=== PATIENT | male | born 1965 | race Caucasian/White ===

== ENCOUNTER → 2017-02-04 | Outpatient (CLI) | payer OTHER ==
--- NOTE | 2017-02-04 15:40 | NM ---
EXAMINATION TYPE: NM hepatobiliary w EF DATE OF EXAM: 02/04/2017 3:36 PM COMPARISON: NONE HISTORY: Dyspepsia TECHNIQUE: After the intravenous administration of 5.24 mCi Tc 99m Mebrofenin hepatobiliary scintigra phy is performed. Immediate images post injection. FINDINGS: There is satisfactory initial accumulation of tracer by the liver. The gallbladder is visualized wit hin 17 minutes. The small bowel activity is noted within 17 minutes. At one hour 8 ounces of oral e nsure plus is given to mimic CCK and gallbladder ejection fraction is calculated at 83 %, in the norm al range. Therefore there is no scintigraphic evidence of cystic or common bile duct obstruction to suggest acute cholecystitis or gallbladder dyskinesia. IMPRESSION: 1. No evidence of cholecystitis 2. Ejection fraction 83%.
== END | disposition home or self-care (01) ==
LOC: RADNMMAIN 12:49
PROVIDERS: ATTEND Family Medicine
DX: K82.4 Cholesterolosis of gallbladder (principal)
CPT/HCPCS: 78226; A9537

== ENCOUNTER 2017-03-21 07:52 | Day surgery (SDC) | payer OTHER ==
[2017-03-16 10:00] VITALS: BMI 26.6
[~2017-03-21 07:52] MED LIST: DEXAMETHASONE SOD PHOSPHATE 10 MG/ML 1 ML VIAL IV ONE; HEPARIN SODIUM,PORCINE 5,000 UNIT/ML 1 ML VIAL SQ ONE; HYDROmorphone 1 MG/ML 1 ML SYRINGE IVP PRN; LACTATED RINGERS 1,000 ML IV SCH; LIDOCAINE 1% 20 ML VIAL (10MG/ML) FOR IV START INTRADERMA PRN; MIDAZOLAM 2 MG/2 ML VIAL IV PRN; ONDANSETRON 4 MG/2 ML VIAL IVP ONE; SCOPOLAMINE 1.5MG/72HR PATCH TRANSDERM ONE
--- NOTE | 2017-03-21 08:32 | P.GSHP ---
History of Present Illness H&P Date: 03/21/17 Chief Complaint: Right upper quadrant pain This a 51-year-old male referred from Dr. Audelia iglesias. Patient with rectal quadrant pain. His recent HIDA scan shows abnormal ejection fraction of 83%. He is also known to have cholelithiasis. Past Medical History Additional Past Medical History / Comment(s): past hx. ulcer History of Any Multi-Drug Resistant Organisms: None Reported Past Surgical History: Hernia Repair Additional Past Surgical History / Comment(s): EGD, hemorrhoidectomy Past Anesthesia/Blood Transfusion Reactions: No Reported Reaction Smoking Status: Never smoker - Past Family History Father Family Medical History: Diabetes Mellitus Mother Family Medical History: Diabetes Mellitus Medications and Allergies Home Medications Medication Instructions Recorded Confirmed Type Ergocalciferol (Vitamin D2) 50,000 unit PO Q7D 03/16/17 03/21/17 History [Vitamin D2] Allergies Allergy/AdvReac Type Severity Reaction Status Date / Time Penicillins Allergy Unknown Verified 03/21/17 08:06 Childhood Surgical - Exam Vital Signs Temp Pulse Resp BP Pulse Ox 97.3 F L 77 16 129/80 95 03/21/17 08:04 03/21/17 08:04 03/21/17 08:04 03/21/17 08:04 03/21/17 08:04 - General well developed, no distress - Eyes PERRL - ENT normal pinna - Neck no masses - Respiratory normal expansion - Cardiovascular Rhythm: regular - Abdomen Abdomen: soft, non tender Assessment and Plan Plan: Cholelithiasis Chronic cholecystitis We'll perform laparoscopic cholecystectomy.
[2017-03-21] MEDS ORDERED: BUPIVACAIN-EPI 0.5%-1:200,000 30 ML VIAL SQ ONE ×2 (08:57→09:21)
[2017-03-21] MEDS ORDERED: MIDAZOLAM 2 MG/2 ML VIAL ONE (09:00)
[2017-03-21] MEDS ORDERED: SUCCINYLCHOLINE CHLORIDE 100 MG/5 ML SYR IV ONE (09:00)
[2017-03-21] MEDS ORDERED: NEOSTIGMINE 1 MG/ML 10 ML VIAL ONE (09:00)
[2017-03-21] MEDS ORDERED: PROPOFOL 10 MG/ML 20 ML VIAL IV ONE (09:00)
[2017-03-21] MEDS ORDERED: ROCURONIUM BROMIDE 10 MG/ML 10 ML VIAL IV ONE (09:00)
[2017-03-21] MEDS ORDERED: LIDOCAINE 1% INJ 10MG/ML (20 ML MDV) ONE (09:00)
[2017-03-21] MEDS ORDERED: GLYCOPYRROLATE 0.2 MG/ML 2 ML VIAL ONE (09:00)
[2017-03-21] MEDS ORDERED: fentaNYL (PF) 50 MCG/ML 2 ML AMP ONE (09:00)
[2017-03-21] MEDS: ceFAZolin 2 GM in SODIUM CHLORIDE 0.9% 100 ML IVPB ONE ×2 (09:17→09:20)
--- NOTE | 2017-03-21 09:39 | P.OP ---
Date of Procedure: 03/21/17 Preoperative Diagnosis: Cholelithiasis Cholecystitis Postoperative Diagnosis: Cholelithiasis Cholecystitis Procedure(s) Performed: Laparoscopic cholecystectomy Implants: Anesthesia: RANDELL Surgeon: Bret Smith Estimated Blood Loss (ml): 5 Pathology: other (Gallbladder) Condition: stable Disposition: PACU Indications for Procedure: Operative Findings: Description of Procedure: The patient was placed on the operating table. The patient received a general endotracheal tube anesthesia. The patients abdomen was prepped and draped in the usual sterile fashion. Through an infraumbilical stab incision, the fascia of the anterior abdominal wall was grasped with a pair of Kochers and then the Veress needle was placed in the peritoneal cavity. Position of the Veress needle was confirmed with positive drop test. The abdomen was then insufflated. After adequate insufflation, the 10 mm trocar was placed in the peritoneal cavity. Following this the laparoscope was placed in the peritoneal cavity. The patient was placed in the head-up, right side up position and then a 5 mm trocar was placed in the right lateral and right subcostal position under direct visualization. A 8 mm trocar was placed in the epigastric position. The gallbladder was grasped in the fundus and infundibulum. Traction on the gallbladder was placed in the lateral and the cephalad positions. The triangle of Calot was visualized.. The cystic duct was bluntly dissected until the union of the cystic duct and common bile duct was seen. The cystic duct was then divided and sealed with the Harmonic scissors. A PDS Endoloop was then placed throughout the cystic duct stump. The cystic artery divided and sealed with the Harmonic scissors. The gallbladder was then removed from the liver bed using Harmonic scissors. The gallbladder was then extracted through the epigastric port site. Operative field was checked for any bleeding spots and Harmonic scissors was used to coagulate the liver bed. The abdomen was irrigated. The trocars were removed. The skin was closed using interrupted 3-0 Vicryl suture. Dermabond dressing were applied. The patient tolerated the procedure well.
[2017-03-21 09:57] VITALS: TEMP 98.2
[2017-03-21] MEDS ORDERED: KETOROLAC 30 MG/ML 1 ML VIAL IVP ONE (10:09)
[2017-03-21 10:16] VITALS: RESP 16
[2017-03-21] MEDS ORDERED: LACTATED RINGERS 1,000 ML IV ONE (10:36)
[2017-03-21 11:54] VITALS: BP 121/64; PULSE 72
== END 2017-03-21 12:14 | disposition home or self-care (01) ==
LOC: OR 07:52
PROVIDERS: ATTEND Surgery
DX: K80.10 Calculus of gallbladder with chronic cholecystitis without obstruction (principal); K21.9 Gastro-esophageal reflux disease without esophagitis; Z88.0 Allergy status to penicillin
CPT/HCPCS: 88304; 47562; J2250; J1644; J1100; J2710; J0690; J2405; J2001; J3010; J1885; J1170; J0330; J2704

== ENCOUNTER 2019-04-13 07:38 | Day surgery (SDC) | payer BC ==
[2019-04-11 13:58] VITALS: BMI 28.3
[~2019-04-13 07:38] MED LIST changes: -DEXAMETHASONE SOD PHOSPHATE 10 MG/ML 1 ML VIAL IV ONE; -HEPARIN SODIUM,PORCINE 5,000 UNIT/ML 1 ML VIAL SQ ONE; -HYDROmorphone 1 MG/ML 1 ML SYRINGE IVP PRN; -LIDOCAINE 1% 20 ML VIAL (10MG/ML) FOR IV START INTRADERMA PRN; -MIDAZOLAM 2 MG/2 ML VIAL IV PRN; -ONDANSETRON 4 MG/2 ML VIAL IVP ONE; -SCOPOLAMINE 1.5MG/72HR PATCH TRANSDERM ONE
[2019-04-13 07:54] VITALS: TEMP 97.9
[2019-04-13] MEDS ORDERED: LIDOCAINE 1% 20 ML VIAL (10MG/ML) FOR IV START INTRADERMA ONE (07:57)
[2019-04-13] MEDS ORDERED: PROPOFOL 10 MG/ML 20 ML VIAL IV ONE (08:43)
--- NOTE | 2019-04-13 08:57 | P.GSHP ---
History of Present Illness H&P Date: 04/13/19 Chief Complaint: Screening colonoscopy This is a 53-year-old male referred from Dr. Audelia iglesias. Patient presents today for screening colonoscopy. He denies any significant GI complaints. Past Medical History Additional Past Medical History / Comment(s): past hx ulcer History of Any Multi-Drug Resistant Organisms: None Reported Past Surgical History: Hernia Repair Additional Past Surgical History / Comment(s): EGD, hemorrhoidectomy Past Anesthesia/Blood Transfusion Reactions: No Reported Reaction Smoking Status: Never smoker - Past Family History Father Family Medical History: Diabetes Mellitus Mother Family Medical History: Diabetes Mellitus Medications and Allergies Home Medications Medication Instructions Recorded Confirmed Type Ergocalciferol (Vitamin D2) 50,000 unit PO Q7D 03/16/17 04/13/19 History [Vitamin D2] Fluticasone Nasal [place] [Flonase 2 spr EA NOSTRIL DAILY PRN 04/11/19 04/13/19 History Nasal [place]] Allergies Allergy/AdvReac Type Severity Reaction Status Date / Time Penicillins Allergy Unknown Verified 04/13/19 07:50 Childhood Surgical - Exam Vital Signs Temp Pulse Resp BP Pulse Ox 97.9 F 73 18 122/71 96 04/13/19 07:53 04/13/19 07:53 04/13/19 07:53 04/13/19 07:53 04/13/19 07:53 - General well developed, well nourished, no distress - Eyes PERRL - ENT normal pinna - Neck no masses - Respiratory normal expansion - Cardiovascular Rhythm: regular - Abdomen Abdomen: soft, non tender Assessment and Plan Assessment: We'll perform screening colonoscopy.
--- NOTE | 2019-04-13 09:05 | P.OP ---
Date of Procedure: 04/13/19 Preoperative Diagnosis: Screening colonoscopy Postoperative Diagnosis: Normal colon Procedure(s) Performed: Colonoscopy Anesthesia: MAC Surgeon: Brte Smith Pathology: none sent Condition: stable Disposition: PACU Description of Procedure: PROCEDURE: The patient was placed on the endoscopy table in the lateral position. Digital rectal examination was performed which revealed no abnormalities. The prostate was symmetrical without nodules. Flexible colonoscope was then placed in the patient's anus and passed throughout the entire colon. The ileocecal valve was visualized. The cecum, ascending, transverse, descending and sigmoid colon were normal. The rectum was normal as well. There were no masses, polyps or diverticula noted in the entire colon. SUMMARY OF FINDINGS: Normal colonoscopy.
[2019-04-13 09:08] VITALS: RESP 17
[2019-04-13 09:18] VITALS: BP 108/72; PULSE 77
== END 2019-04-13 09:47 | disposition home or self-care (01) ==
LOC: ORWHC2ENDO 07:38
PROVIDERS: ATTEND Surgery
DX: Z12.11 Encounter for screening for malignant neoplasm of colon (principal); Z87.11 Personal history of peptic ulcer disease; Z83.3 Family history of diabetes mellitus; Z88.0 Allergy status to penicillin; Z90.49 Acquired absence of other specified parts of digestive tract
CPT/HCPCS: J2704; G0121

== ENCOUNTER 2020-08-14 04:19 | Observation (INO) | payer BC ==
[2020-08-14] MEDS ORDERED: SODIUM CHLORIDE 0.9% 1,000 ML IV STA ×2 (04:43)
--- NOTE | 2020-08-14 04:45 | ED ---
Syncope HPI - General Chief Complaint: Syncope Stated Complaint: fall,lip lac Time Seen by Provider: 08/14/20 04:22 Source: patient, RN notes reviewed, old records reviewed Mode of arrival: ambulatory Limitations: no limitations - History of Present Illness Initial Comments: This is a 55-year-old male DF for evaluation of a syncopal event. Patient is s yncopal slip and fall forward as he wasn't feeling well streaking up to go to the bathroom tonight. Currently he still doesn't feel well but no headache chest pain shortness of breath or abdominal pain. Patient states he has been feeling well again for a while states patient's been acting well for a while. Patient did fall forward hitting his head on the side of the shower. Minimal abrasion to nose and left MD Complaint: loss of consciousness, collapsed -: hour(s) Prodromal Symptoms: lightheaded, palpitations -: second(s) Witnessed: no Injuries Sustained Associated with Event: Face, Mouth/Tongue, Head Current Symptoms: shortness of breath, weakness Context: getting out of bed Treatments Prior to Arrival: none - Related Data Home Medications Medication Instructions Recorded Confirmed Ergocalciferol (Vitamin D2) 50,000 unit PO FR 03/16/17 08/14/20 [Vitamin D2] Fluticasone Nasal [place] [Flonase 2 spr EA NOSTRIL DAILY PRN 04/11/19 08/14/20 Nasal [place]] Atorvastatin [Lipitor] 20 mg PO DAILY 08/14/20 08/14/20 Calcium Polycarbophil [Fiber-Lax] 625 mg PO DAILY 08/14/20 08/14/20 Dextroamphetamine/Amphetamine 20 mg PO DAILY 08/14/20 08/14/20 [Adderall Xr] Loratadine 10 mg PO BID PRN 08/14/20 08/14/20 Tadalafil [Cialis] 5 mg PO DAILY 08/14/20 08/14/20 metFORMIN HCL [Glucophage] 500 mg PO AC-SUPPER 08/14/20 08/14/20 Allergies Allergy/AdvReac Type Severity Reaction Status Date / Time Penicillins Allergy Unknown Verified 08/14/20 07:33 Childhood Review of Systems ROS Statement: Those systems with pertinent positive or pertinent negative responses have been documented in the HPI. ROS Other: All systems not noted in ROS Statement are negative. Past Medical History Past Medical History: Hypertension Additional Past Medical History / Comment(s): past hx ulcer History of Any Multi-Drug Resistant Organisms: None Reported Past Surgical History: Hernia Repair Additional Past Surgical History / Comment(s): EGD, hemorrhoidectomy Past Anesthesia/Blood Transfusion Reactions: No Reported Reaction Past Psychological History: ADD/ADHD Smoking Status: Never smoker Past Alcohol Use History: Occasional Past Drug Use History: None Reported - Past Family History Father Family Medical History: Diabetes Mellitus Mother Family Medical History: Diabetes Mellitus General Exam Limitations: no limitations General appearance: alert, in no apparent distress Head exam: Present: normocephalic, normal inspection. Absent: atraumatic (Abrasion to nasal bridge as well as lower lip) Eye exam: Present: normal appearance, PERRL, EOMI. Absent: scleral icterus, conjunctival injection, periorbital swelling ENT exam: Present: normal exam, mucous membranes moist Neck exam: Present: normal inspection. Absent: tenderness, meningismus, lymphadenopathy Respiratory exam: Present: normal lung sounds bilaterally. Absent: respiratory distress, wheezes, rales, rhonchi, stridor Cardiovascular Exam: Present: regular rate, normal rhythm, normal heart sounds. Absent: systolic murmur, diastolic murmur, rubs, gallop, clicks GI/Abdominal exam: Present: soft, normal bowel sounds. Absent: distended, tenderness, guarding, rebound, rigid Extremities exam: Present: normal inspection, full ROM, normal capillary refill. Absent: tenderness, pedal edema, joint swelling, calf tenderness Back exam: Present: normal inspection Neurological exam: Present: alert, oriented X3, CN II-XII intact Psychiatric exam: Present: normal affect, normal mood Skin exam: Present: warm, dry, intact, normal color. Absent: rash Course Vital Signs 08/14/20 08/14/20 08/14/20 04:21 04:33 05:00 Temperature 98.8 F Pulse Rate 95 84 86 Pulse Rate [ Sitting Die Cutter Apprentice] Pulse Rate [ Standing Die Cutter Apprentice ] Pulse Rate [ Supine Die Cutter Apprentice] Respiratory 22 22 18 Rate Blood Pressure 119/71 95/65 Blood Pressure [Right Arm Sitting] Blood Pressure [Right Arm Standing] Blood Pressure [Right Arm Supine] O2 Sat by Pulse 100 99 Oximetry 08/14/20 08/14/20 08/14/20 05:30 05:38 06:00 Temperature Pulse Rate 77 82 82 Pulse Rate [ Sitting Die Cutter Apprentice] Pulse Rate [ Standing Die Cutter Apprentice ] Pulse Rate [ Supine Die Cutter Apprentice] Respiratory 7 L 16 10 L Rate Blood Pressure 95/65 108/68 108/68 Blood Pressure [Right Arm Sitting] Blood Pressure [Right Arm Standing] Blood Pressure [Right Arm Supine] O2 Sat by Pulse 100 100 100 Oximetry 08/14/20 08/14/20 08/14/20 06:30 07:00 07:17 Temperature Pulse Rate 77 105 H 92 Pulse Rate [ Sitting Die Cutter Apprentice] Pulse Rate [ Standing Die Cutter Apprentice ] Pulse Rate [ Supine Die Cutter Apprentice] Respiratory 19 12 16 Rate Blood Pressure 108/68 108/68 98/69 Blood Pressure [Right Arm Sitting] Blood Pressure [Right Arm Standing] Blood Pressure [Right Arm Supine] O2 Sat by Pulse 99 99 100 Oximetry 08/14/20 08/14/20 08/14/20 07:30 08:00 08:30 Temperature Pulse Rate 82 79 80 Pulse Rate [ Sitting Die Cutter Apprentice] Pulse Rate [ Standing Die Cutter Apprentice ] Pulse Rate [ Supine Die Cutter Apprentice] Respiratory 13 20 15 Rate Blood Pressure 98/69 98/69 95/58 Blood Pressure [Right Arm Sitting] Blood Pressure [Right Arm Standing] Blood Pressure [Right Arm Supine] O2 Sat by Pulse 100 100 99 Oximetry 08/14/20 08/14/20 08/14/20 09:00 09:21 09:30 Temperature Pulse Rate 77 Pulse Rate [ 74 Sitting Die Cutter Apprentice] Pulse Rate [ 75 Standing Die Cutter Apprentice ] Pulse Rate [ 77 Supine Die Cutter Apprentice] Respiratory 16 11 L Rate Blood Pressure 95/58 95/65 Blood Pressure 100/59 [Right Arm Sitting] Blood Pressure 95/65 [Right Arm Standing] Blood Pressure 101/59 [Right Arm Supine] O2 Sat by Pulse 100 Oximetry 08/14/20 08/14/20 08/14/20 10:00 10:30 11:00 Temperature Pulse Rate 70 77 79 Pulse Rate [ Sitting Die Cutter Apprentice] Pulse Rate [ Standing Die Cutter Apprentice ] Pulse Rate [ Supine Die Cutter Apprentice] Respiratory 16 19 21 Rate Blood Pressure 95/65 103/49 103/49 Blood Pressure [Right Arm Sitting] Blood Pressure [Right Arm Standing] Blood Pressure [Right Arm Supine] O2 Sat by Pulse 100 98 99 Oximetry 08/14/20 08/14/20 08/14/20 11:30 12:00 12:30 Temperature 98.7 F Pulse Rate 72 69 78 Pulse Rate [ Sitting Die Cutter Apprentice] Pulse Rate [ Standing Die Cutter Apprentice ] Pulse Rate [ Supine Die Cutter Apprentice] Respiratory 11 L 18 14 Rate Blood Pressure 103/49 103/49 109/60 Blood Pressure [Right Arm Sitting] Blood Pressure [Right Arm Standing] Blood Pressure [Right Arm Supine] O2 Sat by Pulse 99 99 98 Oximetry 08/14/20 08/14/20 08/14/20 13:00 14:00 15:00 Temperature Pulse Rate 80 75 95 Pulse Rate [ Sitting Die Cutter Apprentice] Pulse Rate [ Standing Die Cutter Apprentice ] Pulse Rate [ Supine Die Cutter Apprentice] Respiratory 18 18 18 Rate Blood Pressure 109/60 109/60 100/57 Blood Pressure [Right Arm Sitting] Blood Pressure [Right Arm Standing] Blood Pressure [Right Arm Supine] O2 Sat by Pulse 100 99 98 Oximetry 08/14/20 16:00 Temperature Pulse Rate 63 Pulse Rate [ Sitting Die Cutter Apprentice] Pulse Rate [ Standing Die Cutter Apprentice ] Pulse Rate [ Supine Die Cutter Apprentice] Respiratory 21 Rate Blood Pressure 100/57 Blood Pressure [Right Arm Sitting] Blood Pressure [Right Arm Standing] Blood Pressure [Right Arm Supine] O2 Sat by Pulse 99 Oximetry - Reevaluation(s) Reevaluation #1: 08/14/20 05:55 Medical records reviewed Reevaluation #2: 08/14/20 05:55 Recurrent syncope here in the ER Reevaluation #3: 08/14/20 05:55 Spoke with patient and family regarding findings and questions have been answered - Consultations Consultation #1: Spoke with PMH were agreeable with this patient EKG Findings - EKG Comments: EKG Findings:: EKG is sinus rhythm 78 WV 140 QRS 100 QTc 458 with PVCs Medical Decision Making - Medical Decision Making 55 male DF with syncope. Patient will be admitted for cardiology to evaluate regarding syncopal event and persistent PVCs - Lab Data Result diagrams: 08/14/20 04:58 08/14/20 04:58 Lab Results 08/14/20 08/14/20 08/14/20 Range/Units 04:51 04:53 04:58 WBC 11.2 H (3.8-10.6) k/uL RBC 5.12 (4.30-5.90) m/uL Hgb 14.7 (13.0-17.5) gm/dL Hct 44.8 (39.0-53.0) % MCV 87.6 (80.0-100.0) fL MCH 28.8 (25.0-35.0) pg MCHC 32.9 (31.0-37.0) g/dL RDW 12.6 (11.5-15.5) % Plt Count 239 (150-450) k/uL MPV 7.3 Neutrophils % 81 % Lymphocytes % 10 % Monocytes % 6 % Eosinophils % 2 % Basophils % 0 % Neutrophils # 9.0 H (1.3-7.7) k/uL Lymphocytes # 1.2 (1.0-4.8) k/uL Monocytes # 0.7 (0-1.0) k/uL Eosinophils # 0.3 (0-0.7) k/uL Basophils # 0.1 (0-0.2) k/uL PT (9.0-12.0) sec INR (<1.2) APTT (22.0-30.0) sec D-Dimer (<0.60) mg/L FEU Sodium (137-145) mmol/L Potassium (3.5-5.1) mmol/L Chloride (98-107) mmol/L Carbon Dioxide (22-30) mmol/L Anion Gap mmol/L BUN (9-20) mg/dL Creatinine (0.66-1.25) mg/dL Est GFR (CKD-EPI)AfAm (>60 ml/min/1.73 sqM) Est GFR (CKD-EPI)NonAf (>60 ml/min/1.73 sqM) Glucose (74-99) mg/dL Calcium (8.4-10.2) mg/dL Phosphorus (2.5-4.5) mg/dL Magnesium (1.6-2.3) mg/dL Total Bilirubin (0.2-1.3) mg/dL AST (17-59) U/L ALT (4-49) U/L Alkaline Phosphatase (38-126) U/L Creatine Kinase (55-170) U/L Troponin I (0.000-0.034) ng/mL Total Protein (6.3-8.2) g/dL Albumin (3.5-5.0) g/dL TSH (0.465-4.680) mIU/L Free T4 (0.78-2.19) ng/dL Urine Color Urine Appearance (Clear) Urine pH (5.0-8.0) Ur Specific [place] (1.001-1.035) Urine Protein (Negative) Urine Glucose (UA) (Negative) Urine Ketones (Negative) Urine Blood (Negative) Urine Nitrite (Negative) Urine Bilirubin (Negative) Urine Urobilinogen (<2.0) mg/dL Ur Leukocyte Esterase (Negative) Coronavirus (PCR) (Not Detectd) Blood Type AB Positive Blood Type Confirm AB Positive Blood Type Recheck No Previous Record Bld Type Recheck Status CABO Indicated Antibody Screen NEGATIVE Spec Expiration Date 08/17/2020 - 235008/14/20 08/14/20 08/14/20 Range/Units 04:58 04:58 04:58 WBC (3.8-10.6) k/uL RBC (4.30-5.90) m/uL Hgb (13.0-17.5) gm/dL Hct (39.0-53.0) % MCV (80.0-100.0) fL MCH (25.0-35.0) pg MCHC (31.0-37.0) g/dL RDW (11.5-15.5) % Plt Count (150-450) k/uL MPV Neutrophils % % Lymphocytes % % Monocytes % % Eosinophils % % Basophils % % Neutrophils # (1.3-7.7) k/uL Lymphocytes # (1.0-4.8) k/uL Monocytes # (0-1.0) k/uL Eosinophils # (0-0.7) k/uL Basophils # (0-0.2) k/uL PT 10.4 (9.0-12.0) sec INR 1.0 (<1.2) APTT 21.2 L (22.0-30.0) sec D-Dimer 0.37 (<0.60) mg/L FEU Sodium 138 (137-145) mmol/L Potassium 4.3 (3.5-5.1) mmol/L Chloride 103 (98-107) mmol/L Carbon Dioxide 30 (22-30) mmol/L Anion Gap 5 mmol/L BUN 20 (9-20) mg/dL Creatinine 1.14 (0.66-1.25) mg/dL Est GFR (CKD-EPI)AfAm 84 (>60 ml/min/1.73 sqM) Est GFR (CKD-EPI)NonAf 73 (>60 ml/min/1.73 sqM) Glucose 162 H (74-99) mg/dL Calcium 9.2 (8.4-10.2) mg/dL Phosphorus 2.2 L (2.5-4.5) mg/dL Magnesium 2.1 (1.6-2.3) mg/dL Total Bilirubin 0.3 (0.2-1.3) mg/dL AST 23 (17-59) U/L ALT 21 (4-49) U/L Alkaline Phosphatase 88 (38-126) U/L Creatine Kinase 63 (55-170) U/L Troponin I (0.000-0.034) ng/mL Total Protein 6.6 (6.3-8.2) g/dL Albumin 4.0 (3.5-5.0) g/dL TSH 4.870 H (0.465-4.680) mIU/L Free T4 1.07 (0.78-2.19) ng/dL Urine Color Yellow Urine Appearance Clear (Clear) Urine pH 5.5 (5.0-8.0) Ur Specific [place] 1.025 (1.001-1.035) Urine Protein Trace H (Negative) Urine Glucose (UA) Trace H (Negative) Urine Ketones Negative (Negative) Urine Blood Negative (Negative) Urine Nitrite Negative (Negative) Urine Bilirubin Negative (Negative) Urine Urobilinogen <2.0 (<2.0) mg/dL Ur Leukocyte Esterase Negative (Negative) Coronavirus (PCR) (Not Detectd) Blood Type Blood Type Confirm Blood Type Recheck Bld Type Recheck Status Antibody Screen Spec Expiration Date 08/14/20 08/14/20 Range/Units 04:58 04:58 WBC (3.8-10.6) k/uL RBC (4.30-5.90) m/uL Hgb (13.0-17.5) gm/dL Hct (39.0-53.0) % MCV (80.0-100.0) fL MCH (25.0-35.0) pg MCHC (31.0-37.0) g/dL RDW (11.5-15.5) % Plt Count (150-450) k/uL MPV Neutrophils % % Lymphocytes % % Monocytes % % Eosinophils % % Basophils % % Neutrophils # (1.3-7.7) k/uL Lymphocytes # (1.0-4.8) k/uL Monocytes # (0-1.0) k/uL Eosinophils # (0-0.7) k/uL Basophils # (0-0.2) k/uL PT (9.0-12.0) sec INR (<1.2) APTT (22.0-30.0) sec D-Dimer (<0.60) mg/L FEU Sodium (137-145) mmol/L Potassium (3.5-5.1) mmol/L Chloride (98-107) mmol/L Carbon Dioxide (22-30) mmol/L Anion Gap mmol/L BUN (9-20) mg/dL Creatinine (0.66-1.25) mg/dL Est GFR (CKD-EPI)AfAm (>60 ml/min/1.73 sqM) Est GFR (CKD-EPI)NonAf (>60 ml/min/1.73 sqM) Glucose (74-99) mg/dL Calcium (8.4-10.2) mg/dL Phosphorus (2.5-4.5) mg/dL Magnesium (1.6-2.3) mg/dL Total Bilirubin (0.2-1.3) mg/dL AST (17-59) U/L ALT (4-49) U/L Alkaline Phosphatase (38-126) U/L Creatine Kinase (55-170) U/L Troponin I <0.012 (0.000-0.034) ng/mL Total Protein (6.3-8.2) g/dL Albumin (3.5-5.0) g/dL TSH (0.465-4.680) mIU/L Free T4 (0.78-2.19) ng/dL Urine Color Urine Appearance (Clear) Urine pH (5.0-8.0) Ur Specific [place] (1.001-1.035) Urine Protein (Negative) Urine Glucose (UA) (Negative) Urine Ketones (Negative) Urine Blood (Negative) Urine Nitrite (Negative) Urine Bilirubin (Negative) Urine Urobilinogen (<2.0) mg/dL Ur Leukocyte Esterase (Negative) Coronavirus (PCR) Not Detected (Not Detectd) Blood Type Blood Type Confirm Blood Type Recheck Bld Type Recheck Status Antibody Screen Spec Expiration Date - Radiology Data Radiology results: report reviewed (CT brain C-spine and facial bones), image reviewed Disposition Clinical Impression: Vasovagal syncope, Dizziness, PVC (premature ventricular contraction) Disposition: ADMITTED IP TO THIS [facility] Condition: Fair Is patient prescribed a controlled substance at d/c from ED?: No
[2020-08-14 05:09] LABS: Basophils # (A) 0.1 k/uL (0-0.2); Basophils % (A) 0 %; Eosinophils # (A) 0.3 k/uL (0-0.7); Eosinophils % (A) 2 %; HCT 44.8 % (39.0-53.0); HGB 14.7 gm/dL (13.0-17.5); Lymphocytes # (A) 1.2 k/uL (1.0-4.8); Lymphocytes % (A) 10 %; MCH 28.8 pg (25.0-35.0); MCHC 32.9 g/dL (31.0-37.0); MCV 87.6 fL (80.0-100.0); Mean Platelet Volume 7.3; Monocytes # (A) 0.7 k/uL (0-1.0); Monocytes % (A) 6 %; Neutrophils % (A) 81 %; Platelet Count 239 k/uL (150-450); RBC 5.12 m/uL (4.30-5.90); RDW 12.6 % (11.5-15.5); WBC 11.2 k/uL (3.8-10.6)
[2020-08-14 05:19] LABS: Calcium 9.2 mg/dL (8.4-10.2); Magnesium 2.1 mg/dL (1.6-2.3); Phosphorus 2.2 mg/dL (2.5-4.5); Potassium 4.3 mmol/L (3.5-5.1); Total Bilirubin 0.3 mg/dL (0.2-1.3); Total Protein 6.6 g/dL (6.3-8.2)
[2020-08-14 05:21] LABS: Appearance,Urine Clear (Clear); Bilirubin,Urine Negative (Negative); Blood,Urine Negative (Negative); Color,Urine Yellow; Glucose,Urine (UA) Trace (Negative); Ketones,Urine Negative (Negative); Leukocyte Esterase,Urine Negative (Negative); Nitrite,Urine Negative (Negative); PH, Urine 5.5 (5.0-8.0); Protein,Urine Trace (Negative); Specific Gravity,Urine 1.025 (1.001-1.035); Urobilinogen,Urine <2.0 mg/dL (<2.0)
[2020-08-14 05:30] LABS: D-Dimer 0.37 mg/L FEU (<0.60); Prothrombin Time 10.4 sec (9.0-12.0)
[2020-08-14 05:32] LABS: Partial Thromboplastin Time 21.2 sec (22.0-30.0)
--- NOTE | 2020-08-14 05:46 | CT ---
EXAM: CT Head Without Intravenous Contrast CLINICAL HISTORY: ITS.REASON CT Reason: fall TECHNIQUE: Axial computed tomography images of the head/brain without intravenous contrast. CTDI is 14 mGy and DLP is 292.5 mGy-cm. This CT exam was performed using one or more of the following dose reduction techniques: automated exposure control, adjustment of the mA and/or kV according to patient size, and/or use of iterative reconstruction technique. COMPARISON: No relevant prior studies available. FINDINGS: No acute intracranial hemorrhage. No midline shift or mass effect. The territorial vaughan-white matter differentiation is maintained throughout. The ventricles and sulci are commensurate with age. The visualized orbits appear grossly unremarkable. The calvarium is intact. The visualized paranasal sinuses and mastoid air cells are grossly clear. IMPRESSION: No acute intracranial hemorrhage, midline shift, or mass effect. EXAM: CT Cervical Spine Without Intravenous Contrast CLINICAL HISTORY: ITS.REASON CT Reason: fall TECHNIQUE: Axial computed tomography images of the cervical spine without intravenous contrast. CTDI is 14 mGy and DLP is 292.5 mGy-cm. This CT exam was performed using one or more of the following dose reduction techniques: automated exposure control, adjustment of the mA and/or kV according to patient size, and/or use of iterative reconstruction technique. COMPARISON: No relevant prior studies available. FINDINGS: The vertebral body heights are maintained. There is no spondylolisthesis. Reversal of the cervical lordosis. The craniocervical junction is intact. The atlanto-dens interval is maintained. The dens is intact. Mild, multilevel degenerative endplate changes. Mild posterior spondylitic ridging at C6-7. Bilateral foraminal stenosis at this level, left greater than right. There is no prevertebral soft tissue swelling. The unenhanced neck soft tissues are grossly unremarkable. The visualized lung apices are grossly clear. IMPRESSION: No cervical spine fracture.
[2020-08-14 06:43] LABS: T4, Free (Free Thyroxine) 1.07 ng/dL (0.78-2.19)
[2020-08-14] MEDS ORDERED: ASPIRIN 81 MG PO STA (06:44)
[2020-08-14] MEDS ORDERED: NITROGLYCERIN SL TABS 0.4 MG TAB SUBLINGUAL PRN (06:44)
--- NOTE | 2020-08-14 06:46 | CT ---
EXAM: CT Maxillofacial Without Intravenous Contrast CLINICAL HISTORY: ITS.REASON CT Reason: fall TECHNIQUE: Axial computed tomography images of the face without intravenous contrast. CTDI is 13 mGy and DLP is 585 mGy-cm. This CT exam was performed using one or more of the following dose reduction techniques: automated exposure control, adjustment of the mA and/or kV according to patient size, and/or use of iterative reconstruction technique. COMPARISON: No relevant prior studies available. FINDINGS: The mandible is intact and well located. The maxillary alveolus, hard palate, and pterygoid plates are intact. Mild induration within the left premaxillary soft tissues, consistent with soft tissue contusion. No organized hematoma. Mucous retention cysts in the right maxillary sinus. The remaining paranasal sinuses are well-developed and well-aerated. The mastoid air cells are grossly clear. The nasal bones and maxillary spines are intact. The zygomatic arches and zygomatic bones are intact. The orbital rims and avila are intact. The intraorbital contents are grossly unremarkable. IMPRESSION: Mild induration within the left premaxillary soft tissues, consistent with soft tissue contusion. No organized hematoma. Intact orbits, zygomatic arches, maxillary sinuses, and nasal bone. Intact mandible
--- NOTE | 2020-08-14 09:12 | XR ---
EXAMINATION TYPE: XR chest 2V DATE OF EXAM: 08/14/2020 COMPARISON: NONE TECHNIQUE: PA and lateral views submitted. HISTORY: Syncope FINDINGS: The lungs are clear and there is no pneumothorax, pleural effusion, or focal pneumonia. Heart size normal. No overt failure. IMPRESSION: 1. No acute process.
[2020-08-14] MEDS ORDERED: FLUTICASONE 50MCG/SPRAY NASAL 16GM EA NOSTRIL PRN (09:52)
[2020-08-14] MEDS ORDERED: LORATADINE 10 MG TAB PO PRN (09:52)
--- NOTE | 2020-08-14 10:46 | ECHOF ---
Referral Reason:synocpe MEASUREMENTS -------- HEIGHT: 170.2 cm WEIGHT: 72.6 kg BP: 98/69 RVIDd: 3.3 cm (< 3.3) IVSd: 1.1 cm (0.6 - 1.1) LVIDd: 3.9 cm (3.9 - 5.3) LVPWd: 1.6 cm (0.6 - 1.1) IVSs: 1.7 cm LVIDs: 2.8 cm LVPWs: 2.2 cm LAESV Index (A-L): 19.37 ml/m Ao Diam: 2.3 cm (2.0 - 3.7) AV Cusp: 1.7 cm (1.5 - 2.6) MV EXCURSION: 18.739 mm (> 18.000) MV EF SLOPE: 116 mm/s (70 - 150) EPSS: 0.5 cm MV E John: 0.83 m/s MV DecT: 189 ms MV A John: 0.81 m/s MV E/A Ratio: 1.03 RAP: 5.00 mmHg RVSP: 20.86 mmHg FINDINGS -------- Sinus rhythm. This was a technically adequate study. The left ventricular size is normal. There is mild concentric left ventricular hypertrophy. Overa ll left ventricular systolic function is normal with, an EF between 55 - 60 %. The right ventricle is mildly enlarged. Normal LA size by volume 22+/-6 ml/m2. The right atrial size is normal. Interatrial and interventricular septum intact. The aortic valve is trileaflet and appears structurally normal. There is no evidence of aortic regu rgitation. There is no evidence of aortic stenosis. Mild mitral regurgitation is present. Mild tricuspid regurgitation present. There is no evidence of pulmonary hypertension. The right v entricular systolic pressure, as measured by Doppler, is 20.86mmHg. There is no pulmonic regurgitation present. The aortic root size is normal. IVC Not well visulized. There is no pericardial effusion. CONCLUSIONS -------- 1. The left ventricular size is normal. 2. There is mild concentric left ventricular hypertrophy. 3. Overall left ventricular systolic function is normal with, an EF between 55 - 60 %. 4. The right ventricle is mildly enlarged. 5. Mild mitral regurgitation is present. 6. Mild tricuspid regurgitation present. DIRECTOR OF EDUCATION AND TRAINING: Judi Montiel RDCS
--- NOTE | 2020-08-14 11:04 | P.HPIM ---
History of Present Illness Patient is a 55-year-old male came in after he had a syncope. Patient the was trying to get up from the commode had a syncopal event. Patient does syncope was preceded by lightheadedness. Patient had diarrhea after his syncopal event. Patient denied any seizure-like activity that he knows of. Patient is found to have a hypotensive along with positive orthostatic vitals. Patient is on lisinopril but takes is notable because of his diabetes mellitus and doesn't nephro protective agent. Patient doesn't have any history of hypertension. Patient hit his face and does have injury to his nose because of which patient had a CT of the head and cervical spine which are within normal limits. Patient's d-dimer is negative mild leukocytosis no evidence of infection Review of Systems REVIEW OF SYSTEMS: CONSTITUTIONAL: No fever, no malaise, no fatigue. HEENT: No recent visual problems or hearing problems. Denied any sore throat. CARDIOVASCULAR: No chest pain, orthopnea, PND, no palpitations. PULMONARY: No shortness of breath, no cough, no hemoptysis. GASTROINTESTINAL: No diarrhea, no nausea, no vomiting, no abdominal pain. NEUROLOGICAL: No headaches, no weakness, no numbness. HEMATOLOGICAL: Denies any bleeding or petechiae. GENITOURINARY: Denies any burning micturition, frequency, or urgency. MUSCULOSKELETAL/RHEUMATOLOGICAL: Denies any joint pain, swelling, or any muscle pain. ENDOCRINE: Denies any polyuria or polydipsia. The rest of the 14-point review of systems is negative. Past Medical History Past Medical History: Hypertension Additional Past Medical History / Comment(s): past hx ulcer History of Any Multi-Drug Resistant Organisms: None Reported Past Surgical History: Hernia Repair Additional Past Surgical History / Comment(s): EGD, hemorrhoidectomy Past Anesthesia/Blood Transfusion Reactions: No Reported Reaction Past Psychological History: ADD/ADHD Smoking Status: Never smoker Past Alcohol Use History: Occasional Past Drug Use History: None Reported - Past Family History Father Family Medical History: Diabetes Mellitus Mother Family Medical History: Diabetes Mellitus Medications and Allergies Home Medications Medication Instructions Recorded Confirmed Type Ergocalciferol (Vitamin D2) 50,000 unit PO FR 03/16/17 08/14/20 History [Vitamin D2] Fluticasone Nasal [place] [Flonase 2 spr EA NOSTRIL DAILY PRN 04/11/19 08/14/20 History Nasal [place]] Atorvastatin [Lipitor] 20 mg PO DAILY 08/14/20 08/14/20 History Calcium Polycarbophil [Fiber-Lax] 625 mg PO DAILY 08/14/20 08/14/20 History Dextroamphetamine/Amphetamine 20 mg PO DAILY 08/14/20 08/14/20 History [Adderall Xr] Loratadine 10 mg PO BID PRN 08/14/20 08/14/20 History Tadalafil [Cialis] 5 mg PO DAILY 08/14/20 08/14/20 History metFORMIN HCL [Glucophage] 500 mg PO AC-SUPPER 08/14/20 08/14/20 History Allergies Allergy/AdvReac Type Severity Reaction Status Date / Time Penicillins Allergy Unknown Verified 08/14/20 07:33 Childhood Physical Exam Vitals: Vital Signs Temp Pulse Pulse Pulse Pulse Resp BP 08/14/20 09:21 74 75 77 16 08/14/20 07:17 92 16 98/69 08/14/20 05:38 82 16 108/68 08/14/20 04:21 98.8 F 95 22 119/71 BP BP BP Pulse Ox 08/14/20 09:21 100/59 95/65 101/59 100 08/14/20 07:17 100 08/14/20 05:38 100 08/14/20 04:21 100 Intake and Output 08/13/20 08/14/20 08/14/20 22:59 06:59 14:59 Other: Weight 72.575 kg PHYSICAL EXAMINATION: GENERAL: The patient is alert and oriented x3, not in any acute distress. Well developed, well nourished. HEENT: Pupils are round and equally reacting to light. EOMI. No scleral icterus. No conjunctival pallor. Patient had injury to the nasal bone. No pharyngeal erythema. No thyromegaly. CARDIOVASCULAR: S1 and S2 present. No murmurs, rubs, or gallops. PULMONARY: Chest is clear to auscultation, no wheezing or crackles. ABDOMEN: Soft, nontender, nondistended, normoactive bowel sounds. No palpable organomegaly. MUSCULOSKELETAL: No joint swelling or deformity. EXTREMITIES: No cyanosis, clubbing, or pedal edema. NEUROLOGICAL: Gross neurological examination did not reveal any focal deficits. SKIN: No rashes. Results CBC & Chem 7: 08/14/20 04:58 08/14/20 04:58 Labs: Abnormal Lab Results - Last 24 Hours (Table) 08/14/20 08/14/20 08/14/20 Range/Units 04:58 04:58 04:58 WBC 11.2 H (3.8-10.6) k/uL Neutrophils # 9.0 H (1.3-7.7) k/uL APTT 21.2 L (22.0-30.0) sec Glucose (74-99) mg/dL Phosphorus (2.5-4.5) mg/dL TSH (0.465-4.680) mIU/L Urine Protein Trace H (Negative) Urine Glucose (UA) Trace H (Negative) 08/14/20 Range/Units 04:58 WBC (3.8-10.6) k/uL Neutrophils # (1.3-7.7) k/uL APTT (22.0-30.0) sec Glucose 162 H (74-99) mg/dL Phosphorus 2.2 L (2.5-4.5) mg/dL TSH 4.870 H (0.465-4.680) mIU/L Urine Protein (Negative) Urine Glucose (UA) (Negative) Assessment and Plan Plan: -Syncope: Secondary to lisinopril along with probably mild intravascular depletion lisinopril will be discontinued patient will follow with the PCP and will check the blood pressure daily at home. Echocardiac was opted which is within normal limits. -Prediabetes: Patient is on metformin which she can continue -Mild acute renal failure: Possibly prerenal azotemia intravascular volume depletion patient will be hydrated we'll evening before his discharge -Leukocytosis reactive secondary to syncope and fall -Elevated TSH: Possibly sick euthyroid syndrome the assessment need to be rep eated as an outpatient in about a month -History of ADHD -Hyperlipidemia Patient will be discharged later today after hydrating him.
--- NOTE | 2020-08-14 11:04 | P.DS ---
Providers Date of admission: 08/14/20 06:44 Attending physician: Jaqui Green Consults: 08/14/20 06:44 Consult Physician Urgent Consulting Provider: Melissa Mitchell Consult Reason/Comments: syncope Do you want consulting provider notified?: Yes Primary care physician: Audelia Hernandez [facility] Course: Refer to my history of present illness for further details Patient Condition at Discharge: Fair Plan - Discharge Summary New Discharge Prescriptions: Discontinued Lisinopril [Zestril] 10 mg PO DAILY No Action Ergocalciferol (Vitamin D2) [Vitamin D2] 50,000 unit PO FR Fluticasone Nasal [place] [Flonase Nasal [place]] 2 spr EA NOSTRIL DAILY PRN PRN Reason: Congestion metFORMIN HCL [Glucophage] 500 mg PO AC-SUPPER Loratadine 10 mg PO BID PRN PRN Reason: Allergy Symptoms Dextroamphetamine/Amphetamine [Adderall Xr] 20 mg PO DAILY Atorvastatin [Lipitor] 20 mg PO DAILY Calcium Polycarbophil [Fiber-Lax] 625 mg PO DAILY Tadalafil [Cialis] 5 mg PO DAILY Discharge Medication List Ergocalciferol (Vitamin D2) [Vitamin D2] 50,000 unit PO FR 03/16/17 [History] Fluticasone Nasal [place] [Flonase Nasal [place]] 2 spr EA NOSTRIL DAILY PRN 04/11/19 [History] Atorvastatin [Lipitor] 20 mg PO DAILY 08/14/20 [History] Calcium Polycarbophil [Fiber-Lax] 625 mg PO DAILY 08/14/20 [History] Dextroamphetamine/Amphetamine [Adderall Xr] 20 mg PO DAILY 08/14/20 [History] Loratadine 10 mg PO BID PRN 08/14/20 [History] Tadalafil [Cialis] 5 mg PO DAILY 08/14/20 [History] metFORMIN HCL [Glucophage] 500 mg PO AC-SUPPER 08/14/20 [History] Follow up Appointment(s)/Referral(s): Audelia Hernandez DO [Primary Care Provider] - 3 Days Discharge Disposition: HOME SELF-CARE
--- NOTE | 2020-08-14 11:52 | P.CRDCN ---
History of Present Illness History of present illness: HISTORY OF PRESENTING ILLNESS This is a pleasant 55-year-old male past medical history significant for newly diagnosed diabetes mellitus for A1C 6.4 and was started on glucophage and lisinopril only secondary new diagnosis of diabetes. He denies having a prior history of hypertension. 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 We have been asked to see in consultation for syncope. He states last night he woke up to use the bathroom. He was having the urge to have diarrhea. He stood up and felt acutely light headed and diaphoretic. He then fell forward hitting his face on the floor and passing out briefly. Blood pressure on arrival was 119/71 heart rate 95. Orthostatics requested this morning do show a drop in his blood pressure from 101/59 to 95/65. DIAGNOSTICS EKG reveals sinus mechanism with frequent PVC's. Telemetry tracings indicate ongoing frequent PVC's. Chest xray negative for an acute cardiopulmonary process. CT face reveals soft tissue contusion. CT head and c-spine negative for an acute process. Laboratory reviewed, WBC 11.2, hemoglobin 14.7, platelets 239, d-dimer 0.37, sodium 138, potassium 4.3, creatinine 1.14, magnesium 2.1, troponin negative x2, TSH 4.87 and free T4 1.07. Current cardiac medications include atorvastatin 20 mg daily and lisinopril 10 mg daily. REVIEW OF SYSTEMS At the time of my exam: CONSTITUTIONAL: Denies fever or chills. CARDIOVASCULAR: Denies chest pain, shortness of breath, orthopnea, PND or palpitations. RESPIRATORY: Denies cough. GASTROINTESTINAL: Denies abdominal pain, diarrhea, constipation, nausea or vomiting. MUSCULOSKELETAL: Denies myalgias. NEUROLOGIC: Denies numbness, tingling or weakness. ENDOCRINE: Denies fatigue, weight change, polydipsia or polyurina. GENITOURINARY: Denies burning, hematuria or urgency with micturation. HEMATOLOGIC: Denies history of anemia or bleeding. PHYSICAL EXAMINATION Blood pressure 98/69 heart rate 92 afebrile and maintaining oxygen saturation on room air. CONSTITUTIONAL: No apparent distress. HEENT: Head is normocephalic. Pupils are equal, round. Sclerae anicteric. Mucous membranes of the mouth are moist. No JVD. No carotid bruit. CHEST EXAMINATION: Lungs are clear to auscultation. No chest wall tenderness is noted on palpation or with deep breathing. HEART EXAMINATION: Regular rate and rhythm. S1, S2 heard. No murmurs, gallops or rub. ABDOMEN: Soft, nontender. Positive bowel sounds. EXTREMITIES: 2+ peripheral pulses, no lower extremity edema and no calf tenderness. NEUROLOGIC EXAMINATION: Patient is awake, alert and oriented x3. 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 Symptoms of diarrhea are possibly suggestive of active COVID infection. Given the high rate of false negative on the rapid test this should be considered. We recommend obtaining a 2D echocardiogram and doppler study to assess cardiac structure and function. Discontinue lisinopril as his blood pressure does not seem to be tolerating. Continue to monitor on telemetry for significant arrhythmia. Thank you kindly for this consultation. Nurse Practitioner note has been reviewed, I agree with a documented findings and plan of care. Patient was seen and examined. Past Medical History Past Medical History: Hypertension Additional Past Medical History / Comment(s): past hx ulcer History of Any Multi-Drug Resistant Organisms: None Reported Past Surgical History: Hernia Repair Additional Past Surgical History / Comment(s): EGD, hemorrhoidectomy Past Anesthesia/Blood Transfusion Reactions: No Reported Reaction Past Psychological History: ADD/ADHD Smoking Status: Never smoker Past Alcohol Use History: Occasional Past Drug Use History: None Reported - Past Family History Father Family Medical History: Diabetes Mellitus Mother Family Medical History: Diabetes Mellitus Medications and Allergies Home Medications Medication Instructions Recorded Confirmed Type Ergocalciferol (Vitamin D2) 50,000 unit PO FR 03/16/17 08/14/20 History [Vitamin D2] Fluticasone Nasal [place] [Flonase 2 spr EA NOSTRIL DAILY PRN 04/11/19 08/14/20 History Nasal [place]] Atorvastatin [Lipitor] 20 mg PO DAILY 08/14/20 08/14/20 History Calcium Polycarbophil [Fiber-Lax] 625 mg PO DAILY 08/14/20 08/14/20 History Dextroamphetamine/Amphetamine 20 mg PO DAILY 08/14/20 08/14/20 History [Adderall Xr] Loratadine 10 mg PO BID PRN 08/14/20 08/14/20 History Tadalafil [Cialis] 5 mg PO DAILY 08/14/20 08/14/20 History metFORMIN HCL [Glucophage] 500 mg PO AC-SUPPER 08/14/20 08/14/20 History Allergies Allergy/AdvReac Type Severity Reaction Status Date / Time Penicillins Allergy Unknown Verified 08/14/20 07:33 Childhood Physical Exam Vitals: Vital Signs Temp Pulse Resp BP Pulse Ox 08/14/20 07:17 92 16 98/69 100 08/14/20 05:38 82 16 108/68 100 08/14/20 04:21 98.8 F 95 22 119/71 100 Intake and Output 08/13/20 08/14/20 08/14/20 22:59 06:59 14:59 Other: Weight 72.575 kg Results 08/14/20 04:58 08/14/20 04:58 Cardiac Enzymes 08/14/20 08/14/20 Range/Units 04:58 04:58 AST 23 (17-59) U/L Troponin I <0.012 (0.000-0.034) ng/mL Coagulation 08/14/20 Range/Units 04:58 PT 10.4 (9.0-12.0) sec APTT 21.2 L (22.0-30.0) sec CBC 08/14/20 Range/Units 04:58 WBC 11.2 H (3.8-10.6) k/uL RBC 5.12 (4.30-5.90) m/uL Hgb 14.7 (13.0-17.5) gm/dL Hct 44.8 (39.0-53.0) % Plt Count 239 (150-450) k/uL Comprehensive Metabolic Panel 08/14/20 Range/Units 04:58 Sodium 138 (137-145) mmol/L Potassium 4.3 (3.5-5.1) mmol/L Chloride 103 (98-107) mmol/L Carbon Dioxide 30 (22-30) mmol/L BUN 20 (9-20) mg/dL Creatinine 1.14 (0.66-1.25) mg/dL Glucose 162 H (74-99) mg/dL Calcium 9.2 (8.4-10.2) mg/dL AST 23 (17-59) U/L ALT 21 (4-49) U/L Alkaline Phosphatase 88 (38-126) U/L Total Protein 6.6 (6.3-8.2) g/dL Albumin 4.0 (3.5-5.0) g/dL Current Medications Generic Name Dose Route Start Last Admin Trade Name Freq PRN Reason Stop Dose Admin Aspirin 325 mg 08/15/20 09:00 Aspirin 325 Mg Tab PO DAILY JHON Sodium Chloride 1,000 mls @ 130 mls/hr 08/14/20 04:43 08/14/20 05:37 Saline 0.9% IV 08/14/20 12:24 130 mls/hr .[id number] STA Administration Nitroglycerin 0.4 mg 08/14/20 06:44 Nitroglycerin Sl Tabs 0.4 Mg Tab SUBLINGUAL Q5M PRN Chest Pain Intake and Output 08/13/20 08/14/20 08/14/20 22:59 06:59 14:59 Other: Weight 72.575 kg 08/14/20 04:58 08/14/20 04:58
[2020-08-14 12:49] VITALS: TEMP 98.7
[2020-08-14 16:08] VITALS: BP 100/57; PULSE 63; RESP 21
[2020-08-15] MEDS ORDERED: ASPIRIN 325 MG TAB PO SCH (09:00)
[2020-08-15] MEDS ORDERED: NON FORMULARY DRUG (Dextroamphetamine/Amphetamine [Adderall Xr] 20 MG Cap.Er.24h) PO SCH (09:00)
[2020-08-15] MEDS ORDERED: ERGOCALCIFEROL 50,000 UNIT CAP PO SCH (09:00)
[2020-08-15] MEDS ORDERED: ATORVASTATIN 20 MG TAB PO SCH (09:00)
== END 2020-08-14 16:19 | disposition home or self-care (01) ==
LOC: EC 04:19 → 1SOBS 06:44
PROVIDERS: ADMIT Hospitalist; ATTEND Hospitalist
DX: S01.511A Laceration without foreign body of lip, initial encounter (principal); W01.0XXA Fall on same level from slipping, tripping and stumbling without subsequent striking against object, initial encounter; R55 Syncope and collapse; I49.3 Ventricular premature depolarization; I95.1 Orthostatic hypotension; T46.4X5A Adverse effect of angiotensin-converting-enzyme inhibitors, initial encounter; R19.7 Diarrhea, unspecified; D72.829 Elevated white blood cell count, unspecified; I10 Essential (primary) hypertension; Z98.890 Other specified postprocedural states; E11.9 Type 2 diabetes mellitus without complications; Z20.828 Contact with and (suspected) exposure to other viral communicable diseases; N17.9 Acute kidney failure, unspecified; R79.89 Other specified abnormal findings of blood chemistry; E86.0 Dehydration; E07.81 Sick-euthyroid syndrome; F90.9 Attention-deficit hyperactivity disorder, unspecified type; E78.5 Hyperlipidemia, unspecified; Z79.899 Other long term (current) drug therapy; Z79.84 Long term (current) use of oral hypoglycemic drugs; Z88.0 Allergy status to penicillin; Z83.3 Family history of diabetes mellitus
CPT/HCPCS: 96360; 96361; 99285; 36415; 93005; 93306; 86900; 86901; 85379; 84439; 80053; 84443; 82550; 83735; 84100; 84484; 85025; 85610; 85730; 86850; 81003; 87635; 71046; 72125; 70486; 70450; G0378

== ENCOUNTER → 2023-10-07 | Outpatient (CLI) | payer BC ==
--- NOTE | 2023-10-07 16:27 | CT ---
EXAMINATION TYPE: CT sinus wo con DATE OF EXAM: 10/07/2023 COMPARISON: None HISTORY: Nasal congestion x [address] DLP: 647.0 mGycm. Automated Exposure Control for Dose Reduction was Utilized. TECHNIQUE: CT scan of the sinuses is performed without contrast, axial images are obtained, coronal r eformatted images are also reviewed. FINDINGS: There is mild mucosal thickening in the left frontal sinus, left posterior ethmoid air cells and in t he right maxillary sinus. There are no air-fluid levels to suggest acute sinusitis. The nasal cavity is intact. The ostiomeatal complexes are patent. The intraorbital contents appear normal and symmetric. The osseous structures are intact. The mastoid air cells and middle ear cavities are well aerated. IMPRESSION: Mild chronic inflammatory change in the left frontal, left posterior ethmoid air cells and right maxi llary sinus. There is no evidence of acute sinusitis.
== END | disposition home or self-care (01) ==
LOC: RADCTMAIN 15:17
PROVIDERS: ATTEND Otolaryngology
DX: J34.89 Other specified disorders of nose and nasal sinuses (principal); J32.0 Chronic maxillary sinusitis
CPT/HCPCS: 70486